=== PATIENT | male | born 1990 | race Two or more races ===

== ENCOUNTER 2019-09-03 00:12 | Emergency (ER) | payer OTHER ==
[~2019-09-03] VITALS: Ht 162.6 cm; Wt 163.9 kg
[2019-09-03 02:49] VITALS: BP 125/79
== END 2019-09-03 02:55 | disposition home or self-care (01) ==
LOC: ER 00:20
DX: S83.92XA Sprain of unspecified site of left knee, initial encounter (principal); E66.9 Obesity, unspecified; Z88.0 Allergy status to penicillin; Z68.44 Body mass index [BMI] 60.0-69.9, adult; W01.0XXA Fall on same level from slipping, tripping and stumbling without subsequent striking against object, initial encounter; Y93.89 Activity, other specified; Y92.89 Other specified places as the place of occurrence of the external cause; Y99.8 Other external cause status
CPT/HCPCS: 73562